=== PATIENT | male | born 1985 | race African-American/Black ===

== ENCOUNTER 2018-01-13 20:25 | Emergency (ER) | payer OTHER ==
[~2018-01-13] VITALS: Ht 180.3 cm; Wt 74.8 kg
[2018-01-13 20:29] VITALS: Ht 180.3 cm; Wt 74.8 kg
[2018-01-13 22:49] VITALS: BP 122/72
== END 2018-01-13 22:49 | disposition home or self-care (01) ==
LOC: ED 20:25
DX: J03.90 Acute tonsillitis, unspecified (principal); Z91.030 Bee allergy status
CPT/HCPCS: J1100; J2405; J2543; J7030